=== PATIENT | female | born 1970 | race Caucasian/White ===

== ENCOUNTER 2021-11-04 06:23 | Observation (INO) ==
[2021-11-04] MEDS ORDERED: CeFAZolin Syr 2,000MG/20 ML 2,000 MG/20 ML SYRINGE IVPB ONE (06:48)
[2021-11-04] MEDS ORDERED: *HR* HYDROmorphone PF 0.5 MG/0.5 ML SYRINGE IVP PRN (07:00)
[2021-11-04] MEDS ORDERED: Ondansetron 4 MG/2 ML VIAL IVP PRN (07:00)
[2021-11-04] MEDS ORDERED: Ringers Solution, Lactated 1,000 ML IVC SCH (07:00)
[2021-11-04] MEDS ORDERED: Lidocaine HCL 4 ML Topical Solution (Laryng-O-Jet Kit Sterile Pak) TP ONE (07:07)
[2021-11-04] MEDS ORDERED: *HR* Propofol 200 MG/20 ML VIAL IVP ONE (07:07)
[2021-11-04] MEDS ORDERED: *HR* FentaNYL (PF) 100 MCG/2 ML VIAL ONE ×2 (07:07→10:19)
[2021-11-04] MEDS ORDERED: Ondansetron 4 MG/2 ML VIAL ONE ×2 (07:07→13:49)
[2021-11-04] MEDS ORDERED: Lidocaine -MPF 2% 2 ML VIAL ONE (07:07)
[2021-11-04] MEDS ORDERED: *HR* Succinylcholine 200 MG/10 ML VIAL IVP ONE (07:07)
[2021-11-04] MEDS ORDERED: *HR* Midazolam HCl 2 MG/2 ML VIAL ONE (07:07)
[2021-11-04] MEDS ORDERED: *HR* Rocuronium Bromide 50 MG/5 ML VIAL ONE ×3 (07:07→11:21)
[2021-11-04] MEDS ORDERED: Bupivacaine/EPI 1:200k 0.25% 50 ML VIAL ONE (07:14)
[2021-11-04] MEDS ORDERED: *HR* Remifentanil 1 MG VIAL IVP ONE ×4 (07:17→13:19)
[2021-11-04] MEDS: CeFAZolin Syr 3,000MG/30 ML 3,000 MG/30 ML SYRINGE IVPB ONE ×2 (08:05→08:32)
[2021-11-04] MEDS ORDERED: Acetaminophen IV 1,000 MG/100 ML BAG IVPB ONE (08:24)
[2021-11-04] MEDS ORDERED: Ketamine HCL *QUVA* 50mg (1mL) SYRINGE ONE (08:40)
[2021-11-04] MEDS ORDERED: *HR* Labetalol 20 MG/4 ML SYRINGE IVP ONE (09:06)
[2021-11-04] MEDS ORDERED: Ketorolac 30 MG/ML VIAL ONE (09:39)
[2021-11-04] MEDS ORDERED: *HR* HYDROMORPHONE 2 MG/ML VIAL ONE ×2 (10:12→10:45)
[2021-11-04] MEDS ORDERED: Isovue-300 50ML VIAL ONE (10:21)
[2021-11-04] MEDS ORDERED: EPHEDrine 50 MG/ML VIAL ONE (11:38)
[2021-11-04] MEDS ORDERED: *HR* Phenylephrine 10 MG/ML VIAL ONE (12:20)
[2021-11-04] MEDS ORDERED: Naloxone 0.4 MG/ML INJ IVP PRN (16:27)
[2021-11-04] MEDS ORDERED: traZODone 50 MG TABLET PO PRN (16:27)
[2021-11-04] MEDS ORDERED: ALPRAZolam 1 MG TABLET PO PRN (16:27)
[2021-11-04] MEDS: Ringers Solution, Lactated 1,000 ML IVC SCH ×2 (16:42→22:00)
[2021-11-04] MEDS: Cyanocobalamin (B-12) 1,000 MCG TABLET PO SCH (16:43)
[2021-11-04] MEDS: Triamterene/HCTZ 75/50 mg TABLET PO SCH (17:51)
[2021-11-04] MEDS: hydrOXYzine pamoate 25 MG CAPSULE PO SCH ×2 (17:51→20:32)
[2021-11-04] MEDS: *HR* OxyCODONE/APAP 5/325 TABLET PO PRN (18:30)
[2021-11-04] MEDS: Ibuprofen 600 MG TABLET PO PRN (20:33)
[2021-11-04] MEDS: Simethicone 80 MG TAB.CHEW PO PRN (22:49)
[2021-11-05] MEDS: *HR* OxyCODONE/APAP 5/325 TABLET PO PRN ×4 (00:38→18:54)
[2021-11-05] MEDS: Ibuprofen 600 MG TABLET PO PRN ×4 (05:04→23:33)
[2021-11-05] MEDS: Ringers Solution, Lactated 1,000 ML IVC SCH (06:04)
[2021-11-05] MEDS ORDERED: polyethylene glycoL 3350 17 GM POWD.PACK PO PRN (07:56)
[2021-11-05] MEDS: Triamterene/HCTZ 75/50 mg TABLET PO SCH (08:22)
[2021-11-05] MEDS: hydrOXYzine pamoate 25 MG CAPSULE PO SCH ×3 (08:23→21:01)
[2021-11-05] MEDS: *HR* OxyCODONE Immed Rel 5 MG TABLET PO PRN ×3 (08:23→22:09)
[2021-11-05] MEDS: Simethicone 80 MG TAB.CHEW PO PRN ×2 (08:24→21:39)
[2021-11-05] MEDS: Cyanocobalamin (B-12) 1,000 MCG TABLET PO SCH (08:24)
[2021-11-05] MEDS ORDERED: Isovue-370 500 ML BOTTLE IVP ONE (23:15)
[2021-11-05 23:52] LABS: White Blood Count 12.3 K/mcL (4.3-11.1)
[2021-11-05 23:53] LABS: Basophils # 0.1 K/mcL (0.0-0.2); Basophils % 0.4 %; Eosinophils # 0.3 K/mcL (0.0-0.6); Eosinophils % 2.3 %; Hematocrit 36.9 % (35.3-44.9); Hemoglobin 11.6 g/dL (11.5-15.4); Immature Granulocytes % 0.2 % (0-4); Lymphocytes # 3.1 K/mcL (0.6-4.6); Lymphocytes % 24.9 %; Mean Corpuscular HGB Conc 31.4 g/dL (31.6-35.5); Mean Corpuscular Hemoglobin 27.1 pg (28.0-33.3); Mean Corpuscular Volume 86.2 fL (83.0-100.0); Mean Platelet Volume 12.5 fL (9.4-12.4); Monocytes # 0.9 K/mcL (0.0-1.3); Monocytes % 7.6 %; Neutrophils # 7.9 K/mcL (1.6-8.9); Platelet Count 174 K/mcL (140-400); Red Blood Count 4.28 M/mcL (3.82-4.97); Red Cell Distribution Width 14.1 % (11.5-14.5); Segmented Neutrophils % 64.6 %
[2021-11-06 00:02] LABS: Alanine Aminotransferase 21 Units/L (7-52); Albumin 3.3 g/dL (3.5-5.7); Albumin/Globulin Ratio 1.1 (1.1-2.2); Alkaline Phosphatase 88 Units/L (34-104); Aspartate Amino Transferase 28 Units/L (13-39); BUN/Creatinine Ratio 13 (6-26); Bilirubin,Total 0.4 mg/dL (0.3-1.0); Blood Urea Nitrogen 13 mg/dL (6-20); Calcium 8.3 mg/dL (8.6-10.3); Carbon Dioxide 29 mEq/L (23-29); Chloride 103 mEq/L (98-107); Globulin 2.9 g/dL (2.4-3.5); Glucose 205 mg/dL (70-105); Osmolality,Calculated 292 (280-300); Potassium 3.8 mEq/L (3.5-5.1); Sodium 138 mEq/L (136-145); Total Protein 6.2 g/dL (6.4-8.9); eGFR For African Americans > 60 (> 60); eGFR For Non-African Americans 56 (> 60)
[2021-11-06 01:22] LABS: ABG Base Excess 1 mEq/L (-2 to 3); ABG HCO3 27 mEq/L (21-27); ABG Oxygen Saturation 95 % (95-98); ABG PCO2 44 mmHg (35-45); ABG PH 7.39 pH Units (7.32-7.45); ABG PO2 74 mmHg (85-104); ABG TCO2 28 mEq/L (20-26)
[2021-11-06] MEDS: *HR* OxyCODONE/APAP 5/325 TABLET PO PRN ×3 (01:29→13:10)
[2021-11-06] MEDS ORDERED: *HR* Dextrose 50 % in Water (Syg) 50 ML SYRINGE IVP PRN (03:04)
[2021-11-06] MEDS ORDERED: Dextrose 4 GM Chewable Tablets PO PRN ×2 (03:04)
[2021-11-06] MEDS ORDERED: D5% in Water 1,000 ML IVC PRN (03:04)
[2021-11-06] MEDS ORDERED: cefTRIAXone 1,000 MG in 0.9 % Sodium Chloride 10 ML IVP SCH (03:08)
[2021-11-06] MEDS ORDERED: Azithromycin 500 MG in 0.9 % Sodium Chloride 250 ML IVPB SCH (03:08)
[2021-11-06] MEDS ORDERED: ALPRAZolam 1 MG TABLET PO PRN (03:10)
[2021-11-06] MEDS ORDERED: Ibuprofen 600 MG TABLET PO PRN (03:12)
[2021-11-06] MEDS ORDERED: Simethicone 80 MG TAB.CHEW PO PRN (03:20)
[2021-11-06] MEDS ORDERED: *HR* OxyCODONE Immed Rel 5 MG TABLET PO PRN (04:00)
[2021-11-06] MEDS: Ringers Solution, Lactated 1,000 ML IVC SCH (04:13)
[2021-11-06 05:16] LABS: Basophils # 0.1 K/mcL (0.0-0.2); Basophils % 0.5 %; Eosinophils # 0.4 K/mcL (0.0-0.6); Eosinophils % 2.5 %; Hematocrit 38.9 % (35.3-44.9); Immature Granulocytes % 0.3 % (0-4); Lymphocytes # 3.6 K/mcL (0.6-4.6); Lymphocytes % 23.5 %; Mean Corpuscular HGB Conc 30.8 g/dL (31.6-35.5); Mean Corpuscular Hemoglobin 27.5 pg (28.0-33.3); Mean Platelet Volume 12.6 fL (9.4-12.4); Monocytes # 1.3 K/mcL (0.0-1.3); Monocytes % 8.5 %; Neutrophils # 9.8 K/mcL (1.6-8.9); Platelet Count 147 K/mcL (140-400); Red Blood Count 4.37 M/mcL (3.82-4.97); Red Cell Distribution Width 14.2 % (11.5-14.5); Segmented Neutrophils % 64.7 %; White Blood Count 15.1 K/mcL (4.3-11.1)
[2021-11-06 05:36] LABS: BUN/Creatinine Ratio 14 (6-26); Blood Urea Nitrogen 12 mg/dL (6-20); Calcium 8.3 mg/dL (8.6-10.3); Carbon Dioxide 26 mEq/L (23-29); Chloride 104 mEq/L (98-107); Glucose 179 mg/dL (70-105); Osmolality,Calculated 288 (280-300); Potassium 3.8 mEq/L (3.5-5.1); Sodium 137 mEq/L (136-145); eGFR For African Americans > 60 (> 60); eGFR For Non-African Americans > 60 (> 60)
[2021-11-06 05:37] LABS: Troponin I < 0.03 ng/mL (< 0.04)
[2021-11-06] MEDS: Insulin LISPRO 300 UNITS/3 ML VIAL SUBQ SCH ×2 (07:35→12:27)
[2021-11-06] MEDS: hydrOXYzine pamoate 25 MG CAPSULE PO SCH ×2 (07:51→13:11)
[2021-11-06] MEDS ORDERED: Triamterene/HCTZ 75/50 mg TABLET PO SCH (09:00)
[2021-11-06] MEDS ORDERED: Cyanocobalamin (B-12) 1,000 MCG TABLET PO SCH (09:00)
[2021-11-06 14:51] VITALS: BP 121/77; PULSE 117; TEMP 98.1; O2SAT 94
[2021-11-06] MEDS ORDERED: Cefdinir 300 MG CAPSULE PO ONE (17:00)
[2021-11-06] MEDS ORDERED: Insulin LISPRO 300 UNITS/3 ML VIAL SUBQ SCH (21:00)
[2021-11-06] MEDS ORDERED: traZODone 50 MG TABLET PO PRN (21:00)
[2021-11-07] MEDS ORDERED: Azithromycin 250 MG TABLET PO SCH (09:00)
== END 2021-11-06 17:20 | disposition home or self-care (01) ==
LOC: SAMDAY 06:23 → 3BNU 06:23 → 1NENUOBS 16:01 → 3BNU 11-06 02:54
PROVIDERS: ADMIT Student in an Organized Health Care Education/Training Program; ATTEND Student in an Organized Health Care Education/Training Program